=== PATIENT | male | born 1975 | race Caucasian/White ===

== ENCOUNTER 2018-11-09 02:11 | Emergency (ER) | payer BC ==
[2018-11-09] MEDS ORDERED: SOD CHLORIDE 0.9% 100 ML (03:00)
[2018-11-09] MEDS ORDERED: IOHEXOL 300MG/ML 150 ML BTL (03:00)
== END 2018-11-09 05:19 | disposition home or self-care (01) ==
LOC: E/R 02:11
DX: S10.93XA Contusion of unspecified part of neck, initial encounter (principal); R40.2142 Coma scale, eyes open, spontaneous, at arrival to emergency department; R40.2362 Coma scale, best motor response, obeys commands, at arrival to emergency department; R40.2252 Coma scale, best verbal response, oriented, at arrival to emergency department; S20.219A Contusion of unspecified front wall of thorax, initial encounter; I10 Essential (primary) hypertension; V43.92XA Unspecified car occupant injured in collision with other type car in traffic accident, initial encounter
CPT/HCPCS: 70498; 71045; 99284-25